=== PATIENT | male | born 1975 | race Caucasian/White ===

== ENCOUNTER → 2017-03-11 | Outpatient (CLI) | payer BC ==
--- NOTE | 2017-03-11 21:04 | CR ---
EXAM DATE: 03/11/17 PATIENT'S AGE: 42 Patient: SONIA MARTÍNEZ Facility: [place], [place] Site . Site : [id number] Study: XRay Extremity Right [id number]/12/2017 1:54:38 PM Ordering Physician: Hilton Castle Final Report: HISTORY: Right thumb injury. Technique: Three views of the right thumb. Comparison: No prior. Findings: No acute fracture or malalignment. Joint spaces maintained. No radiopaque foreign body or abnormal soft tissue gas. Impression: No acute fracture or malalignment. Dictated by Hebert Ken MD @ Mar 11 2017 3:52PM (Electronic Signature) Report Signed by Proxy. TORY
== END ==
LOC: MW.CHFP 13:32
PROVIDERS: ATTEND Physician Assistant
DX: S69.91XA Unspecified injury of right wrist, hand and finger(s), initial encounter (principal)
CPT/HCPCS: 73140-26-F5; 73140-F5